=== PATIENT | female | born 1985 | race Two or more races ===

== ENCOUNTER 2023-04-08 19:11 | Emergency (ER) | payer OTHER ==
[~2023-04-08] VITALS: Ht 162.6 cm; Wt 76.2 kg
[2023-04-08 21:23] LABS: HEMATOCRIT 36.7 % (36.0-45.00); HEMOGLOBIN 12.5 g/dL (12.0-15.00); MEAN CELL VOLUME 92.4 fL (80.00-100.00); MEAN CORPUSCULAR HEMOGLOBIN 31.4 pg (27.00-32.0); PLATELET COUNT 255 K/uL (150-450); RED BLOOD COUNT 3.97 M/uL (4.00-6.00); RED CELL DISTRIBUTION WIDTH 14.3 % (11.5-14.5)
== END 2023-04-08 22:08 | disposition home or self-care (01) ==
LOC: ER 19:12
DX: U07.1 COVID-19 (principal)